=== PATIENT | male | born 1965 | race Two or more races ===

== ENCOUNTER 2022-03-19 22:48 | Outpatient (CLI) | payer MEDICAID | END 2022-03-19 22:49 | disposition critical access hospital (66) | LOC: EMS 22:48 | DX: R07.9 Chest pain, unspecified (principal) | CPT/HCPCS: A0425; A0427; A0999 ==

== ENCOUNTER 2022-03-19 23:03 | Emergency (ER) | payer MEDICAID, OTHER ==
[2022-03-19 23:31] LABS: BASOPHILS # (AUTO) 0.1 10^3/uL (0.0-0.1); BASOPHILS % (AUTO) 1.1 %; EOSINOPHILS # (AUTO) 0.1 10^3/uL (0.0-0.7); EOSINOPHILS % (AUTO) 1.1 %; HCT - HEMATOCRIT 39.4 % (42.0-52.0); HGB - HEMOGLOBIN 13.5 g/dL (14.0-18.0); LYMPHOCYTES # (AUTO) 1.1 10^3/uL (1.5-3.5); LYMPHOCYTES % (AUTO) 17.1 %; MEAN CORPUSCULAR HEMOGLOBIN 32.4 pg (27.0-31.0); MEAN CORPUSCULAR HGB CONC 34.3 g/dL (32.0-36.0); MEAN CORPUSCULAR VOLUME 94.5 fL (80.0-94.0); MEAN PLATELET VOLUME 9.1 fL (7.4-11.4); MONOCYTES # (AUTO) 0.7 10^3/uL (0.0-1.0); MONOCYTES % (AUTO) 11.1 %; NEUTROPHILS # (AUTO) 4.3 10^3/uL (1.5-6.6); NEUTROPHILS % (AUTO) 69.3 %; PLT - PLATELET COUNT 168 10^3/uL (130-450); RED BLOOD COUNT 4.17 10^6/uL (4.70-6.10); RED CELL DISTRIBUTION WIDTH 14.5 % (12.0-15.0); WHITE BLOOD COUNT 6.2 x10^3/uL (4.8-10.8)
[2022-03-19 23:45] LABS: ALBUMIN 4.1 g/dL (3.2-5.5); ALBUMIN/GLOBULIN RATIO 1.2 (1.0-2.2); BILIRUBIN,TOTAL 0.6 mg/dL (0.2-1.0); CALCIUM 8.9 mg/dL (8.5-10.3); CREATININE 0.6 mg/dL (0.6-1.2); POTASSIUM 3.6 mmol/L (3.5-5.0); TOTAL PROTEIN 7.4 g/dL (6.7-8.2)
[2022-03-20] MEDS ORDERED: SODIUM CHLORIDE 0.9% 1,000 ML IV STA
--- NOTE | 2022-03-20 | XRAY Report ---
PROCEDURE: Chest 1 View X-Ray INDICATIONS: Chest pain TECHNIQUE: One view of the chest was acquired. COMPARISON: None. FINDINGS: Surgical changes and devices: None. Lungs and pleura: No pleural effusions or pneumothorax. Lungs are clear. Mediastinum: Mediastinal contours appear normal. Heart size is normal. Bones and chest wall: No suspicious bony lesions. Overlying soft tissues appear unremarkable. IMPRESSION: 1. No acute cardiopulmonary disease. Reviewed by: Jose Gutierrez MD on 03/20/2022 12:04 AM PDT Approved by: Jose Gutierrez MD on 03/20/2022 12:04 AM PDT Station ID: [id number]
--- NOTE | 2022-03-20 00:38 | ED Physician Documentation ---
PD HPI CHEST PAIN - Stated complaint Stated Complaint: CP/ETOH - Chief complaint Chief Complaint: Cardiac - History obtained from History obtained from: Patient - Additional information Additional information: Patient is a 56-year-old male with a history of hypertension presenting for evaluation of chest pain. He reports the pain started around 230 this afternoon as he was walking around drinking 1/5 of whiskey. The pain does not radiate. It feels sharp. Certain movements make it feel worse. He does not recall any injuries or trauma.Has been constant through the afternoon. He admits to jordan telles at least 1/5 of alcohol today and states he drinks at least this amount daily. He also Admits to methamphetamine use. He denies fever, cough, difficulty breathing, vomiting or diarrhea. He did have associated nausea.Patient has been taking only half the dose of his metoprolol to try and stretch it out as he is running low on his prescription. He has homeless and is usually seen between [facility] in [place]. He did have a recent stay at the [facility] detox facility but left after a few days and immediately started drinking again. He does indicate he is interested in detox at this time.He was given aspirin and 1 nitro from EMS and the pain has improved.He denies known coronary artery disease or stents. Review of Systems Constitutional: denies: Fever Nose: denies: Congestion Cardiac: reports: Chest pain / pressure. denies: Palpitations Respiratory: denies: Dyspnea, Cough GI: reports: Nausea. denies: Abdominal Pain, Vomiting : denies: Dysuria Skin: denies: Rash Musculoskeletal: denies: Back pain Neurologic: denies: Headache, Head injury PD PAST MEDICAL HISTORY - Present Medications Home Medications: Ambulatory Orders Medication Instructions Recorded Confirmed Metoprolol Succinate [Toprol Xl] 25 mg PO DAILY #30 tablet 03/20/22 - Allergies Allergies/Adverse Reactions: Allergies Allergy/AdvReac Type Severity Reaction Status Date / Time No Known Drug Allergies Allergy Verified 03/19/22 23:12 PD ED PE NORMAL - General General: Alert and oriented X 3, No acute distress, Well developed/nourished - HEENT HEENT: Atraumatic, Moist mucous membranes - Neck Neck: Supple, no meningeal sign - Cardiac Cardiac: RRR, No murmur, Strong equal pulses - Respiratory Respiratory: No respiratory distress, Clear bilaterally - Abdomen Abdomen: Normal bowel sounds, Soft, Non tender, Non distended - Derm Derm: Warm and dry - Extremities Extremities: No edema, No calf tenderness / cord - Neuro Neuro: Alert and oriented X 3, No motor deficit, Normal speech - Psych Psych: Normal mood Results - Vitals Vitals: Vital Signs - 24 hr 03/19/22 03/20/22 03/20/22 23:07 01:11 03:00 Temperature 36.9 C Heart Rate 101 H 90 96 Respiratory 18 18 16 Rate Blood Pressure 161/115 H 158/111 H 140/99 H O2 Saturation 99 98 98 03/20/22 03/20/22 05:00 07:59 Temperature Heart Rate 84 67 Respiratory 13 12 Rate Blood Pressure 138/98 H 141/98 H O2 Saturation 99 100 Oxygen O2 Source Room air - EKG (time done) 2337 Rate: Rate (enter#) (105) Rhythm: Sinus tachycardia [place]: Normal Intervals: Other (QTC 485) Ischemia: No: ST elevation c/w ischemia Compare to prior EKG: Old EKG unavailable - Labs Labs: Laboratory Tests 03/19/22 03/19/22 03/19/22 23:24 23:24 23:24 WBC 6.2 RBC 4.17 L Hgb 13.5 L Hct 39.4 L MCV 94.5 H MCH 32.4 H MCHC 34.3 RDW 14.5 Plt Count 168 MPV 9.1 Neut # (Auto) 4.3 Lymph # (Auto) 1.1 L [place] # (Auto) 0.7 Eos # (Auto) 0.1 Baso # (Auto) 0.1 Absolute Nucleated RBC 0.00 Nucleated RBC % 0.0 Sodium 136 Potassium 3.6 Chloride 103 Carbon Dioxide 23 Anion Gap 10.0 BUN 11 Creatinine 0.6 Estimated GFR (MDRD) 140 Glucose 94 Calcium 8.9 Total Bilirubin 0.6 AST 18 ALT 21 Alkaline Phosphatase 98 Troponin I High Sens 4.7 Total Protein 7.4 Albumin 4.1 Globulin 3.3 Albumin/Globulin Ratio 1.2 Lipase 27 Ethyl Alcohol 03/19/22 03/20/22 23:24 05:37 WBC RBC Hgb Hct MCV MCH MCHC RDW Plt Count MPV Neut # (Auto) Lymph # (Auto) [place] # (Auto) Eos # (Auto) Baso # (Auto) Absolute Nucleated RBC Nucleated RBC % Sodium Potassium Chloride Carbon Dioxide Anion Gap BUN Creatinine Estimated GFR (MDRD) Glucose Calcium Total Bilirubin AST ALT Alkaline Phosphatase Troponin I High Sens 4.6 Total Protein Albumin Globulin Albumin/Globulin Ratio Lipase Ethyl Alcohol 37.8 PD MEDICAL DECISION MAKING - ED course Complexity details: reviewed results, re-evaluated patient, d/w patient ED course: Patient evaluated for chest pain in the setting of alcohol and methamphetamine use. Pain does not radiate and has been constant since early this afternoon. EKG was reassuring without signs of acute ischemia and troponin is negative x2. Doubt aortic dissection due to lack of other symptoms Such as migratory pain. Patient denies difficulty breathing and appears comfortable, has no risk factors for pulmonary embolism. Patient does express interest in wanting to go to detox. We did call detox facility and they do have an opening available. Patient is cleared medically. He did require a dose of Ativan for alcohol withdrawal symptoms through the night. He will remain emergency department until this morning when detox facility should have a bed available for him. 1215 - I called [facility]. They would be able to except the patient at 7:30 in the morning. Requested a nurse to help him call [facility] To do intake screening. They did request I obtain an alcohol level. They do not need a COVID test as able to 1 at their facility. Departure - Departure Disposition: 01 Home, Self Care Clinical Impression: Alcohol abuse Chest pain Qualifiers: Chest pain type: unspecified Qualified Code(s): R07.9 - Chest pain, unspecified Condition: Stable Instructions: ED Chest Pain Atypical Unkn Cause, ED Alcohol Abuse Prescriptions: Metoprolol Succinate [Toprol Xl] 25 mg PO DAILY #30 tablet Comments: You were evaluated for pain to your chest. At this time I do not see signs of a heart attack Or blood clot in your lung. Your pain seems to have improved while in the emergency department. You did express wanting to go to a detox facility and [facility] has an availability this morning. I have printed a prescription for your metoprolol which you should fill at your earliest convenience. Please follow-up with your primary care doctor or sales consultant insurance as you may need further testing such as a stress test or ultrasound of your heart. You should also avoid illicit substances including heavy alcohol use or drug use. Please make sure to take all of your medications as prescribed. If you have any new or worsening symptoms, consider returning to the emergency department. Discharge Date/Time: 03/20/22 08:04
[2022-03-20] MEDS ORDERED: LORazepam 1 MG TABLET PO STA (01:48)
[2022-03-20 08:00] VITALS: BP 141/98
== END 2022-03-20 08:04 | disposition home or self-care (01) ==
LOC: ED 23:03
DX: R07.9 Chest pain, unspecified (principal); I10 Essential (primary) hypertension
CPT/HCPCS: 36415; 71045; 80053; 80320; 83690; 84484; 85025; 93005; 99284; J8499

== ENCOUNTER 2022-05-04 13:00 | Outpatient (CLI) | payer MEDICAID | END 2022-05-04 13:01 | disposition short-term general hospital (02) | LOC: EMS 13:00 | DX: I10 Essential (primary) hypertension (principal); I49.8 Other specified cardiac arrhythmias | CPT/HCPCS: A0425; A0429; A0999 ==